=== PATIENT | female | born 1965 | race Caucasian/White ===

== ENCOUNTER → 2018-03-27 11:25 | Outpatient (CLI) | payer OTHER, SELFPAY ==
--- NOTE | 2018-03-27 | DI.RAD.S_ITS ---
PROCEDURE: XR SACROILIAC JOINT MIN 3V INDICATIONS: BACK PAIN TECHNIQUE: 3 views of the sacroiliac joints were acquired. COMPARISON: None. FINDINGS: Bones: No ankylosis. No suspicious bony lesions. No fractures. Lower lumbar degenerative disease. Bilateral periarticular sacroiliac sclerosis. Possible erosions on the left. Soft tissues: Overlying bowel gas pattern is normal. No suspicious soft tissue densities. IMPRESSION: Bilateral sacroiliac sclerosis, possible erosions on the left. Cross sectional evaluation could be performed if needed. Dictated by: Vini Conner M.D. on 03/27/2018 at 13:40 Approved by: Vini Conner M.D. on 03/27/2018 at 13:45
--- NOTE | 2018-03-27 | DI.RAD.S_ITS ---
PROCEDURE: XR LUMBAR SPINE 2-3V INDICATIONS: BACK PAIN TECHNIQUE: 3 views of the lumbar spine were acquired. COMPARISON: None. FINDINGS: Bones: Levoscoliosis. Diffuse facet arthropathy. Severe multilevel disc space narrowing primarily from L3-S1 Soft tissues: Overlying bowel gas pattern is normal. No suspicious soft tissue calcifications. IMPRESSION: Severe multilevel lumbar disc degeneration and facet arthropathy. Levoscoliosis. Dictated by: Vini Conner M.D. on 03/27/2018 at 13:45 Approved by: Vini Conner M.D. on 03/27/2018 at 13:48
== END ==
PROVIDERS: Family Provider Family Medicine; PCP Family Medicine; Visit Provider Family Medicine
DX: M53.3 Sacrococcygeal disorders, not elsewhere classified (principal); M54.5 Low back pain; G89.29 Other chronic pain; M51.36 Other intervertebral disc degeneration, lumbar region; M47.816 Spondylosis without myelopathy or radiculopathy, lumbar region; M41.86 Other forms of scoliosis, lumbar region
CPT/HCPCS: 72100; 72202

== ENCOUNTER → 2019-03-28 08:45 | Outpatient (CLI) | payer OTHER, SELFPAY ==
--- NOTE | 2019-03-28 | DI.CT.S_ITS ---
PROCEDURE: CT FACIAL BONES W CON INDICATIONS: Localized pain left face TECHNIQUE: After the administration of intravenous contrast, 2.5 mm axial sections acquired from the mid-neck to the frontal sinuses, with coronal and sagittal reformats. For radiation dose reduction, the following was used: automated exposure control, adjustment of mA and/or kV according to patient size. COMPARISON: [facility], CT, HEAD WITHOUT CONTRAST, 01/29/2015, 12:24. FINDINGS: Image quality: Excellent. Soft tissues: Minimal soft tissue swelling is seen involving the left perimandibular soft tissues. No findings of soft tissue abscess can be seen. No enlarged lymph nodes, although symmetric borderline prominent lymph nodes can be seen on both sides at level IIA. Vascular: Visualized vascular structures appear patent throughout. Bony vascular foramina and canals appear normal. Bones: Facial bones appear intact, without fractures, erosions, or destruction. Visualized portions of the skull base and auditory canals also appear normal. Sinuses: Paranasal sinuses are aerated without fluid levels, mucosal thickening, or mucoceles. Mastoid air cells are aerated. IMPRESSION: Minimal soft tissue swelling can be seen involving the left perimandibular soft tissues, yet without abscess formation identified. Dictated by: Javy Rivas M.D. on 03/28/2019 at 9:42 Approved by: Javy Rivas M.D. on 03/28/2019 at 9:46
== END ==
PROVIDERS: Family Provider Family Medicine; PCP Family Medicine; Referring Provider Family Medicine; Visit Provider Family Medicine
DX: R22.0 Localized swelling, mass and lump, head (principal); R68.84 Jaw pain; R51 Headache
CPT/HCPCS: 70487; Q9967

== ENCOUNTER 2020-05-05 22:03 | Emergency (ER) | payer OTHER, SELFPAY ==
[2020-05-05 22:09] VITALS: BP 142/88; PULSE 72; RESP 18; TEMP 36.4; O2SAT 98
--- NOTE | 2020-05-05 22:12 | ED_ITS ---
HPI - Abdominal Pain General Chief Complaint: Abdominal Pain Stated Complaint: POSSIBLE KIDNEY STONE Time Seen by Provider: 05/05/20 22:12 Source: patient Mode of arrival: Ambulatory History of Present Illness HPI narrative: 54-year-old woman with a history of multiple sclerosis and no prior issues with kidney stones presents with severe acute onset right-sided flank pain started approximately 7:00 p.m. this evening after noticing some achy type pain starting at 4:00 p.m. this afternoon. She describes no fevers, cough, chills, abdominal pain, vomiting, dysuria, diarrhea, chest pain or palpitations. She has had no exacerbations of her MS symptoms recently. Related Data Previous Rx's Medication Instructions Recorded oxycodone-acetaminophen 1 tab PO Q6H PRN 7 Days #15 tab 05/06/20 tamsulosin [Flomax] 0.4 mg PO DAILY #14 cap 05/06/20 Allergies Allergy/AdvReac Type Severity Reaction Status Date / Time DOXYCYCLINE Allergy Unknown RASH Uncoded 07/20/17 12:05 FORMALDEHYDE Allergy Unknown JOINT PAIN Uncoded 07/20/17 12:05 INTERFERON BETA Allergy Unknown Uncoded 07/20/17 12:05 LATEX Allergy Unknown RASH/ITCHIN Uncoded 07/20/17 12:05 G Review of Systems Review of Systems ROS Unobtainable: All systems reviewed & are unremarkable except as noted in HPI and below Patient History Medical History Kidney stone Multiple sclerosis Exam Narrative Exam Narrative: General: Healthy appearing, in obvious distress pacing about the room trying to find a comfortable position, Well-nourished well-developed HEENT: Moist mucous membranes, normal sclera with reactive pupils, Respiratory: Lungs are clear to auscultation, no wheezing no rales no rhonchi. Full and symmetrical air movement Cardiac: Regular rate and rhythm no murmurs no bruits Abdomen: Soft, nontender, good bowel tones, right-sided flank pain Skin: Warm and dry, no rashes Neurologic: Grossly neurologically intact with no obvious asymmetries or abnormalities Extremities: No trauma, well perfused Psych: Cooperative, appropriate insight and affect Initial Vital Signs Initial Vital Signs: Vital Signs Temperature 97.5 F L 05/05/20 22:09 Pulse Rate 72 05/05/20 22:09 Respiratory Rate 18 05/05/20 22:09 Blood Pressure 142/88 H 05/05/20 22:09 Pulse Oximetry 98 05/05/20 22:09 Course Orders Ordered: ED Orders 05/05/20 22:19 CT kidney ureter bladder (KUB) Stat 05/05/20 22:25 Complete Blood Count AUTO DIFF Stat Comprehensive Metabolic Panel Stat Hydromorphone HCl (Hydromorphone 0.5 Mg Inj) 0.5 mg IV Q15MIN PRN PRN Reason: Pain, Last Admin: 05/06/20 00:18 Dose: 0.5 mg Documented by: Admin: 05/05/20 23:33 Dose: 0.5 mg Documented by: HAYDE Discontinued Medications Acetaminophen (Acetaminophen 325 Mg Tablet) 975 mg PO NOW ONE Stop: 05/06/20 00:15 Last Admin: 05/06/20 00:18 Dose: 975 mg Documented by: HAYDE Lidocaine HCl 6.8 ml/ Sodium (Chloride) 56.8 mls @ 340.8 mls/hr IV NOW ONE Stop: 05/05/20 22:19 Last Infusion: 05/05/20 22:59 Dose: 0 mls/hr Documented by: Admin: 05/05/20 22:38 Dose: 340.8 mls/hr Documented by: JAIR Sodium Chloride (Normal Saline 0.9%) 1,000 mls @ 1,000 mls/hr IV BOLUS ONE Stop: 05/05/20 23:17 Last Infusion: 05/06/20 00:21 Dose: 0 mls/hr Documented by: Admin: 05/05/20 22:37 Dose: 1,000 mls/hr Documented by: JAIR Ondansetron HCl (Ondansetron 4 Mg/2 Ml Inj) 4 mg IV NOW ONE Stop: 05/05/20 22:45 Last Admin: 05/05/20 22:50 Dose: 4 mg Documented by: HAYDE Oxycodone/Acetaminophen (Oxycodone/Acetaminophen 5/325 Tablet) 1 tab PO NOW ONE Stop: 05/06/20 01:02 Last Admin: 05/06/20 01:07 Dose: 1 tab Documented by: Oxycodone/Acetaminophen (Oxycodone/Apap 5/325 Prepack) 1 bottle MISC SEEINSTR ONE Stop: 05/06/20 01:02 Last Admin: 05/06/20 01:07 Dose: 1 bottle Documented by: Tamsulosin HCl (Tamsulosin 0.4 Mg Capsule) 0.4 mg PO NOW ONE Stop: 05/06/20 01:02 Last Admin: 05/06/20 01:07 Dose: 0.4 mg Documented by: Vital Signs Vital signs: Vital Signs - 8 hr 05/05/20 22:09 Temperature 97.5 F L Pulse Rate 72 Respiratory Rate 18 Blood Pressure 142/88 H Pulse Oximetry 98 MDM - Abdominal Pain Medical Records Attestation: I reviewed the patient's medical records. Lab Data Attestation: I reviewed the patient's lab results. Result diagrams: 05/05/20 22:25 05/05/20 22:25 Labs: Lab Results 05/05/20 05/05/20 Range/Units 22:25 22:25 WBC 9.0 (4.5-11.0) X10^3/uL RBC 4.83 (4.0-5.2) X10^6/uL Hgb 13.8 (12.0-16.0) g/dL Hct 42.7 (36-46) % MCV 88.4 (80-100) fL MCH 28.6 (26-34) PG MCHC 32.4 (30-36) % RDW 13.9 (11.6-14.8) % Plt Count 173 (150-400) X10^3/uL Neut % (Auto) 66.6 (50-75) % Lymph % (Auto) 20.8 L (25-40) % [place] % (Auto) 8.0 (3-14) % Eos % (Auto) 3.9 (2-4) % Baso % (Auto) 0.7 (0-2) % Neut # (Auto) 6000 (1621-8977) /uL Lymph # (Auto) 1900 (0697-0515) /uL [place] # (Auto) 700 (0-900) /uL Eos # (Auto) 400 (0-450) /uL Baso # (Auto) 100 (0-100) /uL Sodium 140 (137-145) mmol/L Potassium 4.1 (3.4-5.1) mmol/L Chloride 108 H (98-107) mmol/L Carbon Dioxide 27 (22-32) mmol/L BUN 21 H (7-17) mg/dL Creatinine 0.83 (0.52-1.04) mg/dL Estimated GFR > 60.0 (>60) mL/min BUN/Creatinine Ratio 25.3 H (6-22) Glucose 95 (70-100) mg/dL Calcium 9.6 (8.4-10.2) mg/dL Total Bilirubin 0.3 (0.2-1.3) mg/dL AST 35 (14-36) IU/L ALT 20 (<35) IU/L Alkaline Phosphatase 54 (38-126) U/L Total Protein 8.1 (6.3-8.2) g/dL Albumin 4.6 (3.5-5.0) g/dL Globulin 3.5 (1.7-4.1) g/dL Albumin/Globulin Ratio 1.3 (1.0-2.8) Point of care testing: Urine Dip Bedside Urine Glucose Negative Bedside Urine Bilirubin - Negative Bedside Urine Ketone - Negative Urine Specific [place] 1.030 Bedside Urine Occult Blood +/- Bedside Urine pH 6 Bedside Urine Protein - Negative Bedside Urine Urobilinogen - Negative Bedside Urine Nitrite - Negative Bedside Urine Leukocytes - Negative Esterase Imaging Data CT scan - abdomen/pelvis: Radiologist's Impression: Distal right ureteral calculus 3 mm in size. Moderate right hydronephrosis and right ureterectasis MDM Narrative Medical decision making narrative: 54-year-old woman presents with acute severe right flank pain. Workup demonstrates a 3 mm ureteral calculus at the right ureterovesical junction. No evidence of infection, appendicitis, bowel obstruction or alternate explanation for her pain. She has responded nicely to IV lidocaine, fluids, Dilaudid. She is beginning to have a bit of itching so IV Benadryl is added. She will be discharged home with Flomax instructions for pain control and the given a urine strainer and asked follow-up with her primary care physician. Discharge Plan Departure Patient Disposition: Home Clinical Impression: Kidney stone Instructions: DI for Kidney Stones Activity Restrictions/Additional Instructions: Thank you for coming in today. You do have a 3 mm kidney stone on the right side. It is almost ready to drop into your bladder and should do so within the next hours to days. I would suggest that you strain your urine to catch the stone and reassure yourself that it is out. Using 400 mg of ibuprofen (2 [id number] pills) and 1 Tylenol every 6 hours can be very helpful in controlling pain. For severe pain you can use 400 mg of ibuprofen and 1 Percocet. Please continue to take tamsulosin/Flomax daily until you have passed the stone. Please return to the emergency department with fevers, pain is severe as it was when you initially came in, uncontrolled vomiting and inability to take medications for new or other findings. Prescriptions: New oxycodone-acetaminophen 5-325 mg tablet 1 tab PO Q6H PRN (Reason: pain) 7 Days Qty: 15 RF: 0 tamsulosin [Flomax] 0.4 mg capsule 0.4 mg PO DAILY Qty: 14 RF: 0 Referrals: Yogesh Sanchez MD [Primary Care Provider] -
--- NOTE | 2020-05-05 22:19 | DI.CT.S_ITS ---
PROCEDURE: CT KIDNEY URETER BLADDER (KUB) INDICATIONS: Right flank pain TECHNIQUE: Noncontrast 5 mm thick sections acquired from the diaphragms to the symphysis. 5 mm thick coronal and sagittal reformats were then performed. For radiation dose reduction, the following was used: automated exposure control, adjustment of mA and/or kV according to patient size. COMPARISON: [facility], CT ABDOMEN/PELVIS WITH CONTRAST, 01/12/2006, 17:08. FINDINGS: Image quality: Excellent. Lung bases: Lung bases are clear. Heart size is normal. Small hiatal hernia. Urinary system: There is a 2 mm stone in the urinary bladder at the ureterovesical junction. There is moderate right hydronephrosis and hydroureter. No other renal calculi. No left hydronephrosis. Bladder wall thickness is normal; no calcified bladder stones. Other solid organs: There is a 1.1 cm cyst in segment 4 of liver. Liver is normal in size. Gallbladder is normal . Pancreas is normal in contours. Spleen is normal in size. No adrenal nodules. Peritoneum and bowel: Unenhanced bowel loops demonstrate normal wall thickness and caliber. No free fluid or air. Nodes and vessels: No retroperitoneal or mesenteric adenopathy by size criteria. Aorta and inferior vena cava are normal in caliber. Abdominal wall: No ventral hernias. Pelvis: There is a partially calcified leiomyoma in the right lateral aspect of the uterus. No free pelvic fluid. No inguinal hernias or adenopathy. Bones: No suspicious bony lesions. No vertebral body compression fractures. Mild scoliosis Degenerative changes in lumbar spine. IMPRESSION: 1. A 2 mm stone at the right ureterovesical junction. There is moderate right hydronephrosis and hydroureter. Dictated by: David Fagan M.D. on 05/06/2020 at 7:22 Approved by: David Fagan M.D. on 05/06/2020 at 7:29
[2020-05-05 22:37] LABS: Add Manual Diff / Slide Review NO; Basophils Absolute Auto 100 /uL (0-100); Basophils Percent Auto 0.7 % (0-2); Eosinophils Absolute Auto 400 /uL (0-450); Eosinophils Percent Auto 3.9 % (2-4); Hematocrit 42.7 % (36-46); Hemoglobin 13.8 g/dL (12.0-16.0); Lymphocytes Absolute Auto 1900 /uL (1100-4500); Lymphocytes Percent Auto 20.8 % (25-40); Mean Corpuscular HGB Conc 32.4 % (30-36); Mean Corpuscular Hemoglobin 28.6 PG (26-34); Mean Corpuscular Volume 88.4 fL (80-100); Monocytes Absolute Auto 700 /uL (0-900); Neutrophils Absolute Auto 6000 /uL (1500-7000); Neutrophils Percent Auto 66.6 % (50-75); Platelet Count 173 X10^3/uL (150-400); Red Blood Cell Count 4.83 X10^6/uL (4.0-5.2); Red Cell Distribution Width 13.9 % (11.6-14.8)
[2020-05-05] MEDS: SODIUM CHLORIDE 0.9% 1,000 ML 1000 ML IV (22:37)
[2020-05-05] MEDS: LIDOCAINE 2% 6.8 ML in SODIUM CHLORIDE 0.9% 50 ML 340.8 ML IV (22:38)
[2020-05-05 22:42] LABS: Alanine Aminotransferase 20 IU/L (<35); Albumin 4.6 g/dL (3.5-5.0); Albumin Globulin Ratio 1.3 (1.0-2.8); Alkaline Phosphatase 54 U/L (38-126); Aspartate Aminotransferase 35 IU/L (14-36); BUN Creatinine Ratio 25.3 (6-22); Bilirubin Total 0.3 mg/dL (0.2-1.3); Blood Urea Nitrogen 21 mg/dL (7-17); Calcium 9.6 mg/dL (8.4-10.2); Carbon Dioxide 27 mmol/L (22-32); Chloride 108 mmol/L (98-107); Estimated Glomerular Filt Rate > 60.0 mL/min (>60); Globulin 3.5 g/dL (1.7-4.1); Glucose 95 mg/dL (70-100); HEMOLYSIS 18 (0-50); Potassium 4.1 mmol/L (3.4-5.1); Sodium 140 mmol/L (137-145); Total Protein 8.1 g/dL (6.3-8.2)
[2020-05-05] MEDS: ONDANSETRON 4 MG/2 ML INJ IV (22:50)
[2020-05-05] MEDS: HYDROMORPHONE 0.5 MG INJ IV (23:33)
[2020-05-06] MEDS: HYDROMORPHONE 0.5 MG INJ IV (00:18)
[2020-05-06] MEDS: ACETAMINOPHEN 325 MG TABLET 975 MG PO (00:18)
[2020-05-06] MEDS: OXYCODONE/APAP 5/325 PREPACK 1 BOTTLE MISC (01:07)
[2020-05-06] MEDS: OXYCODONE/ACETAMINOPHEN 5/325 TABLET 1 TAB PO (01:07)
[2020-05-06] MEDS: TAMSULOSIN 0.4 MG CAPSULE PO (01:07)
[2020-05-06] MEDS: diphenhydrAMINE 50 MG/ML VIAL 25 MG IV (01:15)
[2020-05-06 01:19] VITALS: BP 138/74; PULSE 66; RESP 16; O2SAT 100
== END 2020-05-06 01:20 | disposition home or self-care (01) ==
PROVIDERS: Emergency Provider Emergency Medicine; Family Provider Family Medicine; PCP Family Medicine
DX: N20.0 Calculus of kidney (principal); Z87.442 Personal history of urinary calculi; G35 Multiple sclerosis
CPT/HCPCS: 36415; 74176; 80053; 81003; 85025; 96361; 96365; 96375; 96376; 99284; J1170; J1200; J2405

== ENCOUNTER → 2021-01-16 10:32 | Outpatient (CLI) | payer OTHER, SELFPAY ==
[2021-01-16 18:56] LABS: BUN Creatinine Ratio 24.1 (6-22); Blood Urea Nitrogen 19 mg/dL (7-17); Calcium 9.5 mg/dL (8.4-10.2); Carbon Dioxide 30 mmol/L (22-32); Chloride 106 mmol/L (98-107); Estimated Glomerular Filt Rate > 60.0 mL/min (>60); Glucose 69 mg/dL (70-100); HEMOLYSIS < 15 (0-50); Sodium 141 mmol/L (137-145)
== END ==
PROVIDERS: Family Provider Family Medicine; PCP Family Medicine; Visit Provider Nurse Practitioner
DX: M45.8 Ankylosing spondylitis sacral and sacrococcygeal region (principal); Z79.899 Other long term (current) drug therapy
CPT/HCPCS: 80048

== ENCOUNTER → 2021-10-30 14:36 | Outpatient (CLI) | payer OTHER, SELFPAY ==
--- NOTE | 2021-10-30 | DI.RAD.S_ITS ---
PROCEDURE: XR SACROILIAC JOINT MIN 3V INDICATIONS: ANKYLOSING SPONDYLITIS TECHNIQUE: 3 views of the sacroiliac joints were acquired. COMPARISON: [facility], CR, XR SACROILIAC JOINT MIN 3V, 03/27/2018, 11:38. FINDINGS: Sacroiliac joint spaces are maintained. There is bilateral sacroiliac sclerosis as seen on previous examination. There is suggestion of periarticular erosion in the iliac bones inferiorly bilaterally, left greater than right. IMPRESSION: Bilateral sacroiliac periarticular sclerosis and probable inferior erosions. Findings are similar to the comparison examination. Dictated by: Demetri Maurer M.D. on 10/30/2021 at 15:51 Approved by: Demetri Maurer M.D. on 10/30/2021 at 15:53
--- NOTE | 2021-10-30 | DI.RAD.S_ITS ---
PROCEDURE: XR HIP W PEL IF DONE BILAT 2V INDICATIONS: ANKYLOSING SPONDYLITIS TECHNIQUE: Two views of the bilateral hips (AP pelvis and frogleg lateral views of each hip). COMPARISON: [facility], CR, XR SACROILIAC JOINT MIN 3V, 03/27/2018, 11:38. FINDINGS: No significant hip joint space narrowing. Normal morphology of the femoral heads and acetabular without femoroacetabular impingement features. No suspicious lytic or blastic osseous lesion. No acute finding. IMPRESSION: No significant degenerative changes of the hips. Dictated by: Demetri Maurer M.D. on 10/30/2021 at 15:50 Approved by: Demetri Maurer M.D. on 10/30/2021 at 15:51
== END ==
PROVIDERS: Family Provider Family Medicine; PCP Family Medicine; Referring Provider Family Medicine; Visit Provider Family Medicine
DX: M45.9 Ankylosing spondylitis of unspecified sites in spine (principal)
CPT/HCPCS: 72202; 73521

== ENCOUNTER 2023-01-24 20:12 | Emergency (ER) | payer OTHER, SELFPAY ==
[2023-01-24 20:20] VITALS: PULSE 68; RESP 18; TEMP 36.6; O2SAT 100; BMI 28.7
--- NOTE | 2023-01-24 20:44 | DI.CT.S_ITS ---
PROCEDURE: CT KIDNEY URETER BLADDER (KUB) INDICATIONS: flank pain on left TECHNIQUE: Axial sections were acquired from the lung bases to the pubic symphysis. Coronal and sagittal reformats were performed. For radiation dose reduction, the following was used: automated exposure control, adjustment of mA and/or kV according to patient size. COMPARISON: [facility], CT, CT KIDNEY URETER BLADDER (KUB), 05/05/2020, 22:27. FINDINGS: Lung bases: No pleural effusion. URINARY: No renal, ureteral, or bladder stone visualized. No hydronephrosis. ABDOMEN: Liver: No significant change small hypodensity inferior right lobe possible cyst Gallbladder: Unremarkable. Biliary ducts: Unremarkable. Pancreas: Unremarkable. Spleen: Unremarkable. Adrenal Glands: Unremarkable. Stomach and Bowel: No bowel obstruction. Peritoneum: No abnormal intraperitoneal fluid. No free air. Abdominal Nodes: No enlarged retroperitoneal or mesenteric lymph nodes. Vessels: Aorta and inferior vena cava are normal in size. PELVIS: Pelvic Organs: Calcified uterine fibroids. Uterus and ovaries not well evaluated by CT. Pelvic Nodes: Unremarkable. Bones: Multilevel degenerative change of the visualized spine. IMPRESSION: No urinary stone or hydronephrosis. Dictated by: Lorenzo Garcia M.D. on 01/24/2023 at 22:45 Approved by: Lorenzo Garcia M.D. on 01/24/2023 at 22:50
[2023-01-24 20:50] LABS: Add Manual Diff / Slide Review NO; Basophils Absolute Auto 100 /uL (0-100); Basophils Percent Auto 1.2 % (0-2); Eosinophils Absolute Auto 300 /uL (0-450); Eosinophils Percent Auto 4.8 % (2-4); Hematocrit 39.9 % (36-46); Hemoglobin 13.7 g/dL (12.0-16.0); Lymphocytes Absolute Auto 2300 /uL (1100-4500); Lymphocytes Percent Auto 32.5 % (25-40); Mean Corpuscular HGB Conc 34.2 % (30-36); Mean Corpuscular Hemoglobin 30.1 PG (26-34); Mean Corpuscular Volume 87.9 fL (80-100); Monocytes Absolute Auto 700 /uL (0-900); Monocytes Percent Auto 9.4 % (3-14); Neutrophils Absolute Auto 3700 /uL (1500-7000); Neutrophils Percent Auto 52.1 % (50-75); Platelet Count 170 X10^3/uL (150-400); Red Blood Cell Count 4.54 X10^6/uL (4.0-5.2); White Blood Cell Count 7.2 X10^3/uL (4.5-11.0)
[2023-01-24 20:54] LABS: Alanine Aminotransferase 36 IU/L (<35); Albumin 4.4 g/dL (3.5-5.0); Albumin Globulin Ratio 1.2 (1.0-2.8); Alkaline Phosphatase 50 U/L (38-126); Aspartate Aminotransferase 36 IU/L (14-36); BUN Creatinine Ratio 20.5 (6-22); Bilirubin Total 0.3 mg/dL (0.2-1.3); Blood Urea Nitrogen 16 mg/dL (7-17); Calcium 9.6 mg/dL (8.4-10.2); Carbon Dioxide 26 mmol/L (22-32); Chloride 106 mmol/L (98-107); Estimated Glomerular Filt Rate > 60 mL/min (>60); Globulin 3.6 g/dL (1.7-4.1); Glucose 92 mg/dL (70-100); HEMOLYSIS 29 (0-50); Potassium 4.2 mmol/L (3.4-5.1); Sodium 139 mmol/L (137-145)
[2023-01-24] MEDS: SODIUM CHLORIDE 0.9% 1,000 ML 1000 ML IV (21:00)
[2023-01-24] MEDS: KETOROLAC 30 MG/ML VIAL 15 MG IV (21:00)
[2023-01-24 21:06] VITALS: BMI 28.7
--- NOTE | 2023-01-24 22:39 | ED.BACK ---
HPI - Back Pain/Injury General Chief Complaint: Back Pain/Injury Stated Complaint: L side lower back pain Time Seen by Provider: 01/24/23 22:39 Source: patient Related Data Previous Rx's Medication Instructions Recorded tamsulosin 0.4 mg capsule (Flomax) 0.4 mg PO DAILY #14 caps 05/06/20 Allergies Allergy/AdvReac Type Severity Reaction Status Date / Time DOXYCYCLINE Allergy Unknown RASH Uncoded 07/20/17 12:05 FORMALDEHYDE Allergy Unknown JOINT PAIN Uncoded 07/20/17 12:05 INTERFERON BETA Allergy Unknown Uncoded 07/20/17 12:05 LATEX Allergy Unknown RASH/ITCHIN Uncoded 07/20/17 12:05 G Patient History Medical History Kidney stone Multiple sclerosis Social History Smoking Status: Never smoker Smoking Status: Never smoker Substance Use Type: does not use Exam Initial Vital Signs Initial Vital Signs: Vital Signs Temperature 97.9 F 01/24/23 20:20 Pulse Rate 68 01/24/23 20:20 Respiratory Rate 18 01/24/23 20:20 Pulse Oximetry 100 01/24/23 20:20 Oxygen Delivery Method Room Air 01/24/23 20:20 Course Orders Ordered: ED Orders 01/24/23 20:34 Complete Blood Count AUTO DIFF Stat Comprehensive Metabolic Panel Stat 01/24/23 20:44 CT kidney ureter bladder (KUB) Stat Ondansetron HCl (Ondansetron 4 Mg Odt) 4 mg PO NOW PRN PRN Reason: Nausea And Vomiting Ondansetron HCl (Ondansetron 4 Mg/2 Ml Inj) 4 mg IV NOW PRN PRN Reason: Nausea And Vomiting Discontinued Medications Sodium Chloride (Normal Saline 0.9%) 1,000 mls @ 1,000 mls/hr IV BOLUS ONE Stop: 01/24/23 21:42 Last Infusion: 01/24/23 22:00 Dose: Infused Documented By: Admin: 01/24/23 21:00 Dose: 1,000 mls/hr Documented By: ASHKAN Ketorolac Tromethamine (Ketorolac 30 Mg/Ml Vial) 15 mg IV NOW ONE Stop: 01/24/23 20:43 Last Admin: 01/24/23 21:00 Dose: 15 mg Documented By: AMV Vital Signs Vital signs: Vital Signs - 8 hr 01/24/23 20:20 Temperature 97.9 F Pulse Rate 68 Respiratory Rate 18 Pulse Oximetry 100 Oxygen Delivery Method Room Air MDM - Back Pain/Injury Lab Data 01/24/23 20:34 01/24/23 20:34 Labs: Lab Results 01/24/23 Range/Units 20:34 WBC 7.2 (4.5-11.0) X10^3/uL RBC 4.54 (4.0-5.2) X10^6/uL Hgb 13.7 (12.0-16.0) g/dL Hct 39.9 (36-46) % MCV 87.9 (80-100) fL MCH 30.1 (26-34) PG MCHC 34.2 (30-36) % RDW 13.0 (11.6-14.8) % Plt Count 170 (150-400) X10^3/uL Neut % (Auto) 52.1 (50-75) % Lymph % (Auto) 32.5 (25-40) % [place] % (Auto) 9.4 (3-14) % Eos % (Auto) 4.8 H (2-4) % Baso % (Auto) 1.2 (0-2) % Neut # (Auto) 3700 (4206-4915) /uL Lymph # (Auto) 2300 (7921-4935) /uL [place] # (Auto) 700 (0-900) /uL Eos # (Auto) 300 (0-450) /uL Baso # (Auto) 100 (0-100) /uL Sodium 139 (137-145) mmol/L Potassium 4.2 (3.4-5.1) mmol/L Chloride 106 (98-107) mmol/L Carbon Dioxide 26 (22-32) mmol/L BUN 16 (7-17) mg/dL Creatinine 0.78 (0.52-1.04) mg/dL Estimated GFR > 60 (>60) mL/min BUN/Creatinine Ratio 20.5 (6-22) Glucose 92 (70-100) mg/dL Calcium 9.6 (8.4-10.2) mg/dL Total Bilirubin 0.3 (0.2-1.3) mg/dL AST 36 (14-36) IU/L ALT 36 H (<35) IU/L Alkaline Phosphatase 50 (38-126) U/L Total Protein 8.0 (6.3-8.2) g/dL Albumin 4.4 (3.5-5.0) g/dL Globulin 3.6 (1.7-4.1) g/dL Albumin/Globulin Ratio 1.2 (1.0-2.8) Urine Dip Bedside Urine Glucose Negative Bedside Urine Bilirubin - Negative Bedside Urine Ketone - Negative Urine Specific [place] 1.020 Bedside Urine Occult Blood - Negative Bedside Urine pH 6.0 Bedside Urine Protein - Negative Bedside Urine Urobilinogen - Negative Bedside Urine Nitrite - Negative Bedside Urine Leukocytes - Negative Esterase Discharge Plan Departure Prescriptions: No Action tamsulosin [Flomax] 0.4 mg capsule 0.4 mg PO DAILY Qty: 14 0RF Referrals: Rhonda Villalta MD [Primary Care Provider] -
--- NOTE | 2023-01-24 23:27 | PC.NURSE ---
Pt out in hallway. Approached this RN stating she no longer wants to stay. Pt reports she feels slightly better after toradol administration and pt would like to go home since, nothing has been done in several hours, for patient. Pt has been advised to stay to be evaluated by provider to go over her results. Pt declined at this time and stated she would rather just go home. VDC signed and completed. IV removed. Advised to follow up with PCP or seek further care as needed. Pt ambulatory out of ED with steady gait.
== END 2023-01-24 23:30 | disposition left against medical advice (07) ==
PROVIDERS: Emergency Provider Emergency Medicine; Family Provider Family Medicine; PCP Family Medicine
DX: R10.9 Unspecified abdominal pain (principal)
CPT/HCPCS: 36415; 74176; 80053; 81003; 85025; 96361; 96374; 99284; J1885

== ENCOUNTER 2023-06-12 23:42 | Emergency (ER) | payer OTHER, SELFPAY ==
[2023-06-12 23:51] VITALS: BP 146/99; PULSE 74; RESP 18; TEMP 37.1; O2SAT 98; BMI 29.4
--- NOTE | 2023-06-12 23:53 | ED_ITS ---
HPI - General Adult General Chief complaint: Wound/Laceration Stated complaint: sliced lt hand finger deep Time Seen by Provider: 06/12/23 23:49 Source: patient Mode of arrival: Ambulatory Limitations: no limitations History of Present Illness HPI narrative: 49-year-old female here for evaluation of a cut to her left index finger. It occurred earlier today when she was using a serrated knife. She does need an u pdate of her tetanus shot. No other injuries from the event. She did see her primary doctor and there was some concern about a nerve injury she was he was sent to the emergency department after the wound was bandaged. Related Data Previous Rx's Medication Instructions Recorded tamsulosin 0.4 mg capsule (Flomax) 0.4 mg PO DAILY #14 caps 05/06/20 Allergies Allergy/AdvReac Type Severity Reaction Status Date / Time INTERFERON BETA Allergy Intermediate alterted Uncoded 06/13/23 00:05 mental status DOXYCYCLINE Allergy Unknown RASH Uncoded 06/13/23 00:05 FORMALDEHYDE Allergy Unknown JOINT PAIN Uncoded 06/13/23 00:05 LATEX Allergy Unknown RASH/ITCHIN Uncoded 06/13/23 00:05 G Review of Systems Constitutional Constitutional: Reports system reviewed and no additional complaints, except as documented Integumentary/Breasts Skin/Breast: Reports system reviewed and no additional complaints, except as documented Neurologic Neurologic: Reports system reviewed and no additional complaints, except as documented Hematologic/Lymphatic On Anticoagulants: No Patient History Medical History Kidney stone Multiple sclerosis Social History Smoking Status: Never smoker Smoking Status: Never smoker Substance Use Type: does not use Exam Initial Vital Signs Initial Vital Signs: Vital Signs Temperature 98.7 F 06/12/23 23:51 Pulse Rate 74 06/12/23 23:51 Respiratory Rate 18 06/12/23 23:51 Blood Pressure 146/99 H 06/12/23 23:51 Pulse Oximetry 98 06/12/23 23:51 Oxygen Delivery Method Room Air 06/12/23 23:51 Skin Other: 2 cm laceration on the radial aspect of the left index finger at the level of the PIP joint. Neuro Sensory Exam: no sensory deficits noted Extrem Other: Patient has active and passive motion at the D IP and PIP and MCP joint both in conjunction with each other and isolated. Procedures Laceration Repair Laceration 1: Site: hand Side (If applicable): left Size (cm): 2 Description: linear Depth: simple, single layer Local Anesthetic: lidocaine 1% Amount of anesthesia used (mL): 3 Pre-repair: wound explored, irrigated extensively and deep structures intact Skin layer closed with: nylon Skin layer suture size: 4-0 Number of sutures: 3 Technique: simple, interrupted Course Orders Ordered: Discontinued Medications Bacitracin (Bacitracin Oint 0.9 Gm Pckt) 1 applic TOP NOW ONE Stop: 06/13/23 00:00 Last Admin: 06/13/23 00:14 Dose: 1 applic Documented By: AB Diphtheria/Tetanus/Acell Pertussis (Tet,Diph,Pertuss(Acell),Vac/Pf 0.5 Ml Syringe) 0.5 ml IM .ONCE ONE Stop: 06/12/23 23:52 Last Admin: 06/12/23 23:59 Dose: 0.5 ml Documented By: AB Vital Signs Vital signs: Vital Signs - 8 hr 06/12/23 23:51 Temperature 98.7 F Pulse Rate 74 Respiratory Rate 18 Blood Pressure 146/99 H Pulse Oximetry 98 Oxygen Delivery Method Room Air Medical Decision Making MDM Narrative Medical decision making narrative: Tetanus updated. Wound closed as described. Low suspicion for ligamentous/nerve injury based on her exam today. Discussed care instructions and return precautions and follow-up instructions. She expressed understanding and agreement with plan. Discharge Plan Departure Patient Disposition: Home Clinical Impression: Laceration Instructions: DI for Laceration Repair Activity Restrictions/Additional Instructions: You can put topical antibiotic ointment over the areas and cover with a bandage. The stitches will need to be removed in 7-10 days. This can be done by your primary provider. You can wash your hands like normal but do not soak your hand in anything until wound is healed. Return to the emergency department for new symptoms. Prescriptions: No Action tamsulosin [Flomax] 0.4 mg capsule 0.4 mg PO DAILY Qty: 14 0RF Referrals: Rhonda Villalta MD [Primary Care Provider] - Stand Alone Forms: Patient Portal/API
[2023-06-12] MEDS: TET,DIPH,PERTUSS(ACELL),VAC/PF 0.5 ML SYRINGE IM (23:59)
[2023-06-13] MEDS: BACITRACIN OINT 0.9 GM PCKT 1 APPLIC TOP (00:14)
== END 2023-06-13 00:20 | disposition home or self-care (01) ==
PROVIDERS: Emergency Provider Emergency Medicine; Family Provider Family Medicine; PCP Family Medicine
DX: S61.211A Laceration without foreign body of left index finger without damage to nail, initial encounter (principal); W26.0XXA Contact with knife, initial encounter; Z23 Encounter for immunization
CPT/HCPCS: 12001; 90471; 99283; 90715

== ENCOUNTER → 2023-11-10 09:38 | Outpatient (CLI) | payer OTHER, SELFPAY ==
--- NOTE | 2023-11-10 09:40 | DI.RAD.S_ITS ---
PROCEDURE: XR DEXA AXIAL SKELETON INDICATIONS: Ankylosing spondylitis lumbar region COMPARISON: None. FINDINGS: Lumbar Spine: Bone mineral density 1.507 g/cm2, T score 3.9 Left Hip: Bone mineral density 1.148 g/cm2, T score 1.7 Left Femoral Neck: Bone mineral density 0.956 g/cm2, T score 1.0 Right Hip: Bone mineral density 1.119 g/cm2, T score 1.4 Right Femoral Neck: Bone mineral density 0.943 g/cm2, T score 0.8 < Fracture Risk Calculation (when applicable): 10-year fracture risk of a major osteoporotic fracture < 6.8% and of a hip fracture 0.1% (T score greater or equal to -1.0 to: NORMAL) (T score from -1.1 to -2.4: OSTEOPENIA) (T score less than or equal to -2.5: OSTEOPOROSIS) IMPRESSION: No evidence for osteopenia or osteoporosis. Follow-up guidelines as follows: Osteoporosis: Consider a repeat DEXA and Vertebral Fracture Assessment (VFA) exam in 2 years or sooner if medically necessary, to reassess this patient's status. Osteopenia: Consider a repeat DEXA in 2-3 years to reassess this patient's status, or if there is a new clinical indication. Normal: Consider a repeat DEXA in 5 years or sooner, or if there is a new clinical indication. All treatment decisions require clinical judgment and consideration of individual patient factors, including patient preferences, comorbidities, previous drug use, risk factors not captured in the FRAX model (e.g., frailty, falls, vitamin D deficiency, increased bone turnover, interval significant decline in bone density ) and possible under- or over-estimation of fracture risk by FRAX. In addition, the NOF Guide recommends that FDA-approved medical therapies be considered in postmenopausal women and men age >= 50 years with a: * Hip or vertebral (clinical or morphometric) fracture * T-score of <=-2.5 at the spine or hip * Ten-year fracture probability by FRAX of >= 3% for hip fracture or >=20% for major osteoporotic fracture. People with diagnosed cases of osteoporosis or at high risk for fracture should have regular bone mineral density tests. For patients eligible for Medicare, routine testing is allowed once every 2 years. The testing frequency can be increased to one year for patients who have rapidly progressing disease, those who are receiving or discontinuing medical therapy to restore bone mass, or have additional risk factors. Dictated by: Henry Church M.D. on 11/10/2023 at 16:03 Approved by: Henry Church M.D. on 11/10/2023 at 16:06
== END ==
PROVIDERS: PCP Family Medicine; Referring Provider Family Medicine; Visit Provider Family Medicine
DX: M45.6 Ankylosing spondylitis lumbar region (principal)
CPT/HCPCS: 77080

== ENCOUNTER 2024-01-30 18:47 | Emergency (ER) | payer BC, SELFPAY ==
[2024-01-30] VITALS (8 sets, daily range): BP systolic 136–156; BP diastolic 70–87; PULSE 60–71; RESP 16–18; TEMP 37.7; O2SAT 95–100; BMI 31.7
[2024-01-30] MEDS: ACETAMINOPHEN IV 1,000 MG/100 ML VIAL 400 MG IV (20:13)
[2024-01-30] MEDS: KETOROLAC 30 MG/ML VIAL 15 MG IV (20:13)
--- NOTE | 2024-01-30 20:18 | ED_ITS ---
HPI - Headache General Chief Complaint: Headache Stated Complaint: sent by PCP, headache, sore throat, stiff neck Time Seen by Provider: 01/30/24 19:37 Source: patient Mode of arrival: Ambulatory Limitations: no limitations History of Present Illness HPI Narrative: Patient is 58-year-old female. At the end of last week started to develop some neck stiffness and then sore throat the day afterwards. Sore throat seems to have improved but now she has a headache. Headache has been going on for the past couple days. No fevers. No vision changes. No chest pain shortness of breath. Was seen by her primary doctor on [facility]. Received a medication for migraine headaches but is unsure as to whether or not it helped all that much. She states that the neck discomfort is in the back of the neck on the left side and occurs mostly when she turns her head from [id number]. No balance issues. Related Data Previous Rx's Medication Instructions Recorded tamsulosin 0.4 mg capsule (Flomax) 0.4 mg PO DAILY #14 caps 05/06/20 Allergies Allergy/AdvReac Type Severity Reaction Status Date / Time INTERFERON BETA Allergy Intermediate alterted Uncoded 06/13/23 00:05 mental status DOXYCYCLINE Allergy Unknown RASH Uncoded 06/13/23 00:05 FORMALDEHYDE Allergy Unknown JOINT PAIN Uncoded 06/13/23 00:05 LATEX Allergy Unknown RASH/ITCHIN Uncoded 06/13/23 00:05 G Review of Systems Review of Systems ROS Unobtainable: All systems reviewed & are unremarkable except as noted in HPI and below Patient History Medical History Kidney stone Multiple sclerosis Social History Smoking Status: Never smoker Smoking Status: Never smoker Substance Use Type: marijuana Exam Initial Vital Signs Initial Vital Signs: Vital Signs Temperature 100 F H 01/30/24 18:50 Pulse Rate 71 01/30/24 18:50 Respiratory Rate 16 01/30/24 18:50 Blood Pressure 136/87 01/30/24 18:50 Pulse Oximetry 100 01/30/24 18:50 Oxygen Delivery Method Room Air 01/30/24 18:50 Const General: cooperative and No ill appearing HENMT Head: normal to inspection and normocephalic Neck Neck: no meningeal signs Resp Effort & Inspection: normal respiratory effort Cardio Rate: regular rate Skin General: no rashes or lesions noted Neuro General: patient alert, patient awake and patient oriented x3 Cognition: normal cognition Speech: speech normal Gait: normal gait Extrem General: normal to inspection Course Orders Ordered: ED Orders 01/30/24 19:43 Respiratory Panel (Film Array) Stat 01/30/24 20:20 Complete Blood Count AUTO DIFF Stat Comprehensive Metabolic Panel Stat 01/30/24 21:41 CT head/brain wo con Stat Discontinued Medications Acetaminophen (Ofirmev) 1,000 mg in 100 mls @ 400 mls/hr IV NOW ONE Stop: 01/30/24 19:57 Last Infusion: 01/30/24 20:30 Dose: Infused Documented By: Admin: 01/30/24 20:13 Dose: 400 mls/hr Documented By: JERROD Ketorolac Tromethamine (Ketorolac 30 Mg/Ml Vial) 15 mg IV NOW ONE Stop: 01/30/24 19:43 Last Admin: 01/30/24 20:13 Dose: 15 mg Documented By: JERROD Vital Signs Vital signs: Vital Signs - 8 hr 01/30/24 18:50 01/30/24 20:41 01/30/24 20:41 Temperature 100 F H Pulse Rate 71 62 Respiratory Rate 16 18 Blood Pressure 136/87 143/72 H Pulse Oximetry 100 98 Oxygen Delivery Method Room Air 01/30/24 21:00 01/30/24 21:29 01/30/24 21:30 Temperature Pulse Rate 66 65 63 Respiratory Rate 16 Blood Pressure 156/77 H Pulse Oximetry 95 95 96 Oxygen Delivery Method Room Air 01/30/24 22:00 01/30/24 22:30 01/30/24 22:45 Temperature Pulse Rate 65 66 60 Respiratory Rate 16 Blood Pressure 140/70 Pulse Oximetry 96 96 96 Oxygen Delivery Method Room Air MDM - Headache Lab Data Attestation: I reviewed the patient's lab results. 01/30/24 20:20 01/30/24 20:20 Labs: Lab Results 01/30/24 01/30/24 Range/Units 19:43 20:20 WBC 5.2 (4.5-11.0) X10^3/uL RBC 4.93 (4.0-5.2) X10^6/uL Hgb 14.3 (12.0-16.0) g/dL Hct 43.1 (36-46) % MCV 87.4 (80-100) fL MCH 29.1 (26-34) PG MCHC 33.3 (30-36) % RDW 13.4 (11.6-14.8) % Plt Count 146 L (150-400) X10^3/uL Neut % (Auto) 57.8 (50-75) % Lymph % (Auto) 22.7 L (25-40) % [place] % (Auto) 12.1 (3-14) % Eos % (Auto) 6.5 H (2-4) % Baso % (Auto) 0.9 (0-2) % Neut # (Auto) 3000 (6806-8929) /uL Lymph # (Auto) 1200 (1990-3368) /uL [place] # (Auto) 600 (0-900) /uL Eos # (Auto) 300 (0-450) /uL Baso # (Auto) 0 (0-100) /uL Sodium 137 (137-145) mmol/L Potassium 3.7 (3.4-5.1) mmol/L Chloride 105 (98-107) mmol/L Carbon Dioxide 26 (22-32) mmol/L BUN 9 (7-17) mg/dL Creatinine 0.68 (0.52-1.04) mg/dL Estimated GFR > 60 (>60) mL/min BUN/Creatinine Ratio 13.2 (6-22) Glucose 90 (70-100) mg/dL Calcium 9.2 (8.4-10.2) mg/dL Total Bilirubin 0.4 (0.2-1.3) mg/dL AST 29 (14-36) IU/L ALT 21 (<35) IU/L Alkaline Phosphatase 60 (38-126) U/L Total Protein 7.5 (6.3-8.2) g/dL Albumin 4.1 (3.5-5.0) g/dL Globulin 3.4 (1.7-4.1) g/dL Albumin/Globulin Ratio 1.2 (1.0-2.8) Chlamy pneumoniae PCR Not detected (Not Detect) Adenovirus (PCR) Not detected (Not Detect) B. pertussis DNA (PCR) Not detected (Not Detect) B.parapertussis DNA PCR Not detected (Not Detecte) Coronavirus OC43 (PCR) Not detected (Not Detect) Coronavirus HKU1 (PCR) Not detected (Not Detect) Coronavirus 229E (PCR) Not detected (Not Detect) SARS-CoV-2 (PCR) Not detected (Not Detecte) Coronavirus NL63 (PCR) Not detected (Not Detect) Human Metapneumovir PCR Not detected (Not Detect) Influenza Type A (PCR) Not detected (Not Detect) Influenza Type B (PCR) Not detected (Not Detect) M. pneumoniae (PCR) Not detected (Not Detect) Parainfluenza 1 (PCR) Not detected (Not Detect) Parainfluenza 2 (PCR) Not detected (Not Detect) Parainfluenza 3 (PCR) Not detected (Not Detect) Parainfluenza 4 (PCR) Not detected (Not Detect) RSV (PCR) Not detected (Not Detect) Entero/Rhino (PCR) Detected H (Not Detect) Urine Dip Bedside Urine Glucose Negative Bedside Urine Bilirubin - Negative Bedside Urine Ketone - Negative Urine Specific [place] 1.010 Bedside Urine Occult Blood - Negative Bedside Urine pH 6.5 Bedside Urine Protein - Negative Bedside Urine Urobilinogen - Negative Bedside Urine Nitrite - Negative Bedside Urine Leukocytes - Negative Esterase Imaging Data CT scan - head: Radiologist's Impression: PROCEDURE: CT HEAD/BRAIN WO CON INDICATIONS: Severe headache, no trauma TECHNIQUE: Noncontrast 4.5 mm thick angled axial sections acquired from the foramen magnum to the vertex, with coronal and sagittal reformats. For radiation dose reduction, the following was used: automated exposure control, adjustment of mA and/or kV according to patient size. COMPARISON: [facility], CT, HEAD WITHOUT CONTRAST, 01/29/2015, 12:24. FINDINGS: Image quality: Diagnostic. CSF spaces: Basal cisterns are patent. No extra-axial fluid collections. The ventricles are symmetric in size and shape. Brain: No acute intracranial hemorrhage or mass effect. There is mild cerebral volume loss for age, with resultant ventricular and sulcal prominence. There are mild periventricular and deep white matter chronic small vessel ischemic changes. There is intracranial internal carotid artery atherosclerosis. Skull and face: Calvarium and visualized facial bones appear intact, without suspicious lesions. Sinuses: Visualized sinuses and mastoids are clear. IMPRESSION: No acute intracranial pathology. MDM Narrative Medical decision making narrative: After medications here in the emergency department she does report some improvement in her headache but not complete resolution. Head CT is unremarkable. She was positive for rhino virus / enterovirus which most likely is the source of her URI like symptoms and most likely the source of her headache and body aches and neck discomfort. I have low suspicion for meningitis based on her presentation today. Low suspicion for intracranial hemorrhage. Recommended Tylenol and ibuprofen for the time being. Follow up with her primary doctor. Return precautions given. Discharge Plan Departure Patient Disposition: Home Clinical Impression: Headache, Rhinovirus Instructions: DI for Viral Upper Respiratory Infection -- Adult, DI for Headache Activity Restrictions/Additional Instructions: You can continue to take Tylenol and/or ibuprofen for headaches. You are positive for rhinovirus which very well could be the source of all of your symptoms today. This is a viral infection that should improve on its own within the next couple days. You can try antihistamine such as Claritin or Zyrtec. Contact your primary doctor for a follow-up. Return to the emergency department for new symptoms. Prescriptions: No Action tamsulosin [Flomax] 0.4 mg capsule 0.4 mg PO DAILY Qty: 14 0RF Referrals: Nabil Guthrie MD [Primary Care Provider] - Stand Alone Forms: Patient Portal/API
[2024-01-30 21:04] LABS: Add Manual Diff / Slide Review NO; Basophils Absolute Auto 0 /uL (0-100); Basophils Percent Auto 0.9 % (0-2); Eosinophils Absolute Auto 300 /uL (0-450); Eosinophils Percent Auto 6.5 % (2-4); Hematocrit 43.1 % (36-46); Hemoglobin 14.3 g/dL (12.0-16.0); Lymphocytes Absolute Auto 1200 /uL (1100-4500); Lymphocytes Percent Auto 22.7 % (25-40); Mean Corpuscular HGB Conc 33.3 % (30-36); Mean Corpuscular Hemoglobin 29.1 PG (26-34); Mean Corpuscular Volume 87.4 fL (80-100); Monocytes Absolute Auto 600 /uL (0-900); Monocytes Percent Auto 12.1 % (3-14); Neutrophils Absolute Auto 3000 /uL (1500-7000); Neutrophils Percent Auto 57.8 % (50-75); Platelet Count 146 X10^3/uL (150-400); Red Blood Cell Count 4.93 X10^6/uL (4.0-5.2); Red Cell Distribution Width 13.4 % (11.6-14.8); White Blood Cell Count 5.2 X10^3/uL (4.5-11.0)
[2024-01-30 21:15] LABS: Alanine Aminotransferase 21 IU/L (<35); Albumin 4.1 g/dL (3.5-5.0); Alkaline Phosphatase 60 U/L (38-126); Aspartate Aminotransferase 29 IU/L (14-36); BUN Creatinine Ratio 13.2 (6-22); Bilirubin Total 0.4 mg/dL (0.2-1.3); Blood Urea Nitrogen 9 mg/dL (7-17); Calcium 9.2 mg/dL (8.4-10.2); Carbon Dioxide 26 mmol/L (22-32); Chloride 105 mmol/L (98-107); Estimated Glomerular Filt Rate > 60 mL/min (>60); Glucose 90 mg/dL (70-100); HEMOLYSIS < 15 (0-50); Potassium 3.7 mmol/L (3.4-5.1); Sodium 137 mmol/L (137-145); Total Protein 7.5 g/dL (6.3-8.2)
[2024-01-30 21:16] LABS: Adenovirus Not Detected (Not Detect); B. parapertussis Not Detected (Not Detecte); Bordetella pertussis Not Detected (Not Detect); Chlamydophila pneumoniae Not Detected (Not Detect); Coronavirus 229E Not Detected (Not Detect); Coronavirus HKU1 Not Detected (Not Detect); Coronavirus NL 63 Not Detected (Not Detect); Coronavirus OC43 Not Detected (Not Detect); Human Metapneumovirus Not Detected (Not Detect); Human Rhinovirus/Enterovirus Detected (Not Detect); Influenza A Not Detected (Not Detect); Influenza B Not Detected (Not Detect); Mycoplasma pneumoniae Not Detected (Not Detect); Parainfluenza Virus 1 Not Detected (Not Detect); Parainfluenza Virus 2 Not Detected (Not Detect); Parainfluenza Virus 3 Not Detected (Not Detect); Parainfluenza Virus 4 Not Detected (Not Detect); Respiratory Syncytial Virus Not Detected (Not Detect); SARS- CoV-2 Not Detected (Not Detecte)
[2024-01-30 21:16] LABS: Albumin Globulin Ratio 1.2 (1.0-2.8); Globulin 3.4 g/dL (1.7-4.1)
--- NOTE | 2024-01-30 21:41 | DI.CT.S_ITS ---
PROCEDURE: CT HEAD/BRAIN WO CON INDICATIONS: Severe headache, no trauma TECHNIQUE: Noncontrast 4.5 mm thick angled axial sections acquired from the foramen magnum to the vertex, with coronal and sagittal reformats. For radiation dose reduction, the following was used: automated exposure control, adjustment of mA and/or kV according to patient size. COMPARISON: [facility], CT, HEAD WITHOUT CONTRAST, 01/29/2015, 12:24. FINDINGS: Image quality: Diagnostic. CSF spaces: Basal cisterns are patent. No extra-axial fluid collections. The ventricles are symmetric in size and shape. Brain: No acute intracranial hemorrhage or mass effect. There is mild cerebral volume loss for age, with resultant ventricular and sulcal prominence. There are mild periventricular and deep white matter chronic small vessel ischemic changes. There is intracranial internal carotid artery atherosclerosis. Skull and face: Calvarium and visualized facial bones appear intact, without suspicious lesions. Sinuses: Visualized sinuses and mastoids are clear. IMPRESSION: No acute intracranial pathology. Approved by: Lorenzo Tovar M.D. on 01/30/2024 at 22:23
== END 2024-01-30 22:45 | disposition home or self-care (01) ==
PROVIDERS: Emergency Provider Emergency Medicine; PCP Family Medicine
DX: R51.9 Headache, unspecified (principal); B34.8 Other viral infections of unspecified site
CPT/HCPCS: 70450; 80053; 81003; 85025; 87633; 96365; 96375; 99284; J0134; J1885

== ENCOUNTER 2024-10-23 14:44 | Emergency (ER) | payer BC, SELFPAY ==
[2024-10-23 15:16] VITALS: BP 138/85; PULSE 85; RESP 16; TEMP 37; O2SAT 99; BMI 28.5
--- NOTE | 2024-10-23 18:03 | DI.CT.S_ITS ---
PROCEDURE: CT HEAD/BRAIN WO CON INDICATIONS: Fall, hit head, worsening pain and nausea TECHNIQUE: Noncontrast 4.5 mm thick angled axial sections acquired from the foramen magnum to the vertex, with coronal and sagittal reformats. For radiation dose reduction, the following was used: automated exposure control, adjustment of mA and/or kV according to patient size. COMPARISON: [facility], CT, CT HEAD/BRAIN WO CON, 01/30/2024, 21:49. FINDINGS: Image quality: Diagnostic. CSF spaces: Basal cisterns are patent. No extra-axial fluid collections. Ventricles are normal in size and shape. Brain: No midline shift. No intracranial mass effect or hemorrhage. Rivera- white matter interface is normal. Skull and face: Calvarium and visualized facial bones are intact, without suspicious lesions. Sinuses: Visualized sinuses and mastoids are clear. IMPRESSION: No acute intracranial pathology. Dictated by: Cricket Ford M.D. on 10/23/2024 at 18:30 Approved by: Cricket Ford M.D. on 10/23/2024 at 18:32
--- NOTE | 2024-10-23 18:11 | DI.CT.S_ITS ---
PROCEDURE: CT CERVICAL SPINE WO CON INDICATIONS: Fall, hit head, worsening pain and nausea TECHNIQUE: Noncontrast 3 mm thick sections acquired from the skull base to the T4 level. Sagittal and coronal reformats were then constructed. For radiation dose reduction, the following was used: automated exposure control, adjustment of mA and/or kV according to patient size. COMPARISON: None. FINDINGS: Image quality: Excellent. Bones: No fractures or dislocations. Visualized superior ribs are intact. There is mild multilevel degenerative disc disease, most prominent at C5-C6. There is also facet arthropathy with mild bilateral foraminal narrowing in the mid to upper cervical region. Soft tissues: Prevertebral soft tissues are normal in thickness. No paravertebral hematomas. No apical pneumothoraces. IMPRESSION: Mild degenerative changes, no acute traumatic osseous lesion seen. Dictated by: Cricket Ford M.D. on 10/23/2024 at 18:33 Approved by: Cricket Ford M.D. on 10/23/2024 at 18:37
--- NOTE | 2024-10-23 18:13 | DI.RAD.S_ITS ---
PROCEDURE: XR CHEST 2V INDICATIONS: trauma TECHNIQUE: 2 views of the chest were acquired. COMPARISON: [facility] ([place]), CR, XR CHEST 2V, 06/07/2023, 14:05. [facility] ([place]), CR, XR CHEST 2V, 01/06/2022, 14:37. FINDINGS: Surgical changes and devices: None. Lungs and pleura: Lungs are clear. No pleural effusions or pneumothorax. Mediastinum: Mediastinal contours are normal. Heart size is normal. Bones and chest wall: No suspicious bony abnormalities. Soft tissues appear unremarkable. IMPRESSION: No acute cardiopulmonary abnormality is seen. Dictated by: Cricket Ford M.D. on 10/23/2024 at 18:29 Approved by: Cricket Ford M.D. on 10/23/2024 at 18:30
--- NOTE | 2024-10-23 19:34 | PC.NURSE ---
while in DI patient states i just want to be cared about tech consoled patient before going back to the waiting room.
--- NOTE | 2024-10-23 20:51 | ED_ITS ---
HPI - Fall General Chief Complaint: Fall Stated Complaint: Fell playing Pickle ball hit head Time Seen by Provider: 10/23/24 18:03 Source: patient Mode of arrival: Ambulatory Related Data Previous Rx's ?Medication ?Instructions ?Recorded tamsulosin 0.4 mg capsule (Flomax) 0.4 mg PO DAILY #14 caps 05/06/20 Allergies Allergy/AdvReac Type Severity Reaction Status Date / Time secukinumab (From Cosentyx) Allergy Intermediate Rash Verified 10/23/24 15:23 INTERFERON BETA Allergy Intermediate alterted Uncoded 10/23/24 15:21 mental status DOXYCYCLINE Allergy Unknown RASH Uncoded 10/23/24 15:21 FORMALDEHYDE Allergy Unknown JOINT PAIN Uncoded 10/23/24 15:21 LATEX Allergy Unknown RASH/ITCHIN Uncoded 10/23/24 15:21 G Patient History Medical History Kidney stone Multiple sclerosis Smoking Status: Never smoker Exam Initial Vital Signs Initial Vital Signs: Vital Signs Temperature 98.6 F 10/23/24 15:16 Pulse Rate 85 10/23/24 15:16 Respiratory Rate 16 10/23/24 15:16 Blood Pressure 138/85 10/23/24 15:16 Pulse Oximetry 99 10/23/24 15:16 Oxygen Delivery Method Room Air 10/23/24 15:16 Course Orders Ordered: ED Orders 10/23/24 18:03 CT head/brain wo con Stat 10/23/24 18:11 CT cervical spine wo con Stat 10/23/24 18:13 CXR [XR chest 2V] Stat Vital Signs Vital signs: Vital Signs - 8 hr 10/23/24 15:16 Temperature 98.6 F Pulse Rate 85 Respiratory Rate 16 Blood Pressure 138/85 Pulse Oximetry 99 Oxygen Delivery Method Room Air MDM - Fall Imaging Data Chest x-ray: Radiologist's Impression: [address] [address] XRay Report Signed Patient: Elizabeth Bah MR#: [id number] : 1965 Acct:[id number] Age/Sex: 59 / F Date of Service: 10/23/24 Loc: ED Accession Number: [id number] Procedure: XR chest 2V Ordering Provider: Wicho Morales D.O. PROCEDURE: XR CHEST 2V INDICATIONS: trauma TECHNIQUE: 2 views of the chest were acquired. COMPARISON: [facility] ([place]), CR, XR CHEST 2V, 06/07/2023, 14:05. [facility] ([place]), CR, XR CHEST 2V, 01/06/2022, 14:37. FINDINGS: Surgical changes and devices: None. Lungs and pleura: Lungs are clear. No pleural effusions or pneumothorax. Mediastinum: Mediastinal contours are normal. Heart size is normal. Bones and chest wall: No suspicious bony abnormalities. Soft tissues appear unremarkable. IMPRESSION: No acute cardiopulmonary abnormality is seen. CT - cervical spine: Radiologist's Impression: [place] [address] CT Scan Report Signed Patient: Elizabeth Bah MR#: [id number] : 1965 Acct:[id number] Age/Sex: 59 / F Date of Service: 10/23/24 Loc: ED Accession Number: [id number] Procedure: CT cervical spine wo con Ordering Provider: Wicho Morales D.O. PROCEDURE: CT CERVICAL SPINE WO CON INDICATIONS: Fall, hit head, worsening pain and nausea TECHNIQUE: Noncontrast 3 mm thick sections acquired from the skull base to the T4 level. Sagittal and coronal reformats were then constructed. For radiation dose reduction, the following was used: automated exposure control, adjustment of mA and/or kV according to patient size. COMPARISON: None. FINDINGS: Image quality: Excellent. Bones: No fractures or dislocations. Visualized superior ribs are intact. There is mild multilevel degenerative disc disease, most prominent at C5-C6. There is also facet arthropathy with mild bilateral foraminal narrowing in the mid to upper cervical region. Soft tissues: Prevertebral soft tissues are normal in thickness. No paravertebral hematomas. No apical pneumothoraces. IMPRESSION: Mild degenerative changes, no acute traumatic osseous lesion seen. CT scan - head: Radiologist's Impression: [address] [address] [address] Scan Report Signed Patient: Elizabeth Bah MR#: [id number] : 1965 Acct:[id number] Age/Sex: 59 / F Date of Service: 10/23/24 Loc: ED Accession Number: [id number] Procedure: CT head/brain wo con Ordering Provider: Wicho Morales D.O. PROCEDURE: CT HEAD/BRAIN WO CON INDICATIONS: Fall, hit head, worsening pain and nausea TECHNIQUE: Noncontrast 4.5 mm thick angled axial sections acquired from the foramen magnum to the vertex, with coronal and sagittal reformats. For radiation dose reduction, the following was used: automated exposure control, adjustment of mA and/or kV according to patient size. COMPARISON: [facility], CT, CT HEAD/BRAIN WO CON, 01/30/2024, 21:49. FINDINGS: Image quality: Diagnostic. CSF spaces: Basal cisterns are patent. No extra-axial fluid collections. Ventricles are normal in size and shape. Brain: No midline shift. No intracranial mass effect or hemorrhage. Rivera- white matter interface is normal. Skull and face: Calvarium and visualized facial bones are intact, without suspicious lesions. Sinuses: Visualized sinuses and mastoids are clear. IMPRESSION: No acute intracranial pathology. Discharge Plan Departure Prescriptions: No Action tamsulosin [Flomax] 0.4 mg capsule 0.4 mg PO DAILY Qty: 14 0RF Referrals: Nabil Guthrie MD [Primary Care Provider, [facility]]
--- NOTE | 2024-10-23 21:10 | PC.NURSE ---
Patient contacted by phone to confirm if she left ER-waiting room. Patient answered and stated that she could not wait any longer because she had to catch the last ferry back to her home on the located within [facility]. Patient states that she is going to follow up with her [facility] and that she will be able to share her CT results with provider using the portal.
== END 2024-10-23 21:12 | disposition left against medical advice (07) ==
PROVIDERS: Emergency Provider Family Medicine; PCP Family Medicine
DX: S09.90XA Unspecified injury of head, initial encounter (principal); M54.2 Cervicalgia; W01.0XXA Fall on same level from slipping, tripping and stumbling without subsequent striking against object, initial encounter
CPT/HCPCS: 70450; 71046; 72125; 99281

== ENCOUNTER → 2025-04-10 15:57 | Outpatient (CLI) | payer BC, SELFPAY ==
--- NOTE | 2025-04-10 15:58 | DI.MRI.S_ITS ---
PROCEDURE: MR CERVICAL SPINE WO CON INDICATIONS: Postconcussional syndrome/Multiple sclerosis TECHNIQUE: Noncontrast sagittal T1 spin echo and T2 fast spin echo, sagittal STIR, foraminal oblique sagittal T2 fast spin echo, and axial gradient echo or T2 fast spin echo through the cervical spine. COMPARISON: [facility], CT, CT CERVICAL SPINE WO CON, 10/23/2024, 18:08. [facility], CT, CT HEAD/BRAIN WO CON, 10/23/2024, 18:08. CT, CT HEAD/BRAIN WO CON, 01/30/2024, 21:49. [facility], MR, MR HEAD/BRAIN WO CON, 04/10/2025, 16:20. FINDINGS: Image quality: Excellent. Alignment and Curvature: There is trace retrolisthesis of C3 on C4, C5 on C6. Bone Marrow: Marrow demonstrates normal overall signal. Spinal Cord: Visualized spinal cord has normal size and signal. No cerebellar tonsillar herniation. Paraspinous Soft Tissues: No paravertebral masses. Prevertebral soft tissues are normal in thickness. Discs: Multilevel mild disc desiccation. C2-C3: No disc bulge, spinal stenosis or foraminal narrowing. C3-C4: Mild disc bulge with minimal effacement of the anterior thecal sac. Mild right foraminal narrowing with uncovertebral hypertrophy. C4-C5: Mild disc bulge with minimal to mild spinal stenosis. [id number] right foraminal narrowing. C5-C6: Mild disc bulge with effacement of the anterior thecal sac. No foraminal narrowing. C6-C7: Mild disc bulge without spinal stenosis. Minimal left foraminal narrowing with uncovertebral hypertrophy. C7-T1: No disc bulge, spinal stenosis or foraminal narrowing. IMPRESSION: Multilevel degenerative changes. No areas of abnormal signal are identified within the cord. Dictated by: An Jasso M.D. on 04/12/2025 at 0:13 Approved by: An Jasso M.D. on 04/12/2025 at 0:16
--- NOTE | 2025-04-10 15:59 | DI.MRI.S_ITS ---
PROCEDURE: MR HEAD/BRAIN WO CON INDICATIONS: Postconcussional syndrome/Multiple sclerosis TECHNIQUE: Noncontrast sagittal and axial FLAIR, axial and coronal T2 fast spin echo, axial VIBE, axial gradient echo, axial diffusion and ADC through the brain. After the administration of contrast, axial and coronal and sagittal VIBE with fat saturation through the brain. COMPARISON: [facility], MR, MR CERVICAL SPINE WO CON, 04/10/2025, 16:39. FINDINGS: Image quality: Excellent. CSF spaces: Ventricles are normal in size and shape. Basal cisterns are patent. No extra-axial fluid collections. Brain: No intracranial bleeds or mass effects. Rivera-white matter interface appears intact. There is scattered areas of periventricular and subcortical white matter hyperintensity. Small signal changes are identified within the corpus callosum. No abnormal intracranial enhancement. Diffusion weighted images show no acute ischemic insults. Brainstem appears normal. Normal intravascular flow voids are present. Skull and face: Calvarial marrow signal is normal. Orbits appear normal. Sinuses: Sinuses and mastoids are clear. IMPRESSION: Scattered areas of periventricular and subcortical white matter hyperintensity including areas within the corpus callosum suggestive of demyelinating disease. Superimposed areas of chronic microvascular ischemia cannot be excluded. Dictated by: An Jasso M.D. on 04/12/2025 at 0:11 Approved by: An Jasso M.D. on 04/12/2025 at 0:13
== END ==
LOC: MRI 15:58
PROVIDERS: PCP Family Medicine; Referring Provider Family Medicine; Visit Provider Family Medicine
DX: G35.D Multiple sclerosis, unspecified (principal); F07.81 Postconcussional syndrome; M50.31 Other cervical disc degeneration, high cervical region; M48.02 Spinal stenosis, cervical region
CPT/HCPCS: 70551; 72141